=== PATIENT | male | born 2000 | race Caucasian/White ===

== ENCOUNTER 2022-04-10 16:03 | Outpatient (CLI) | payer OTHER, SELFPAY ==
[2022-04-10 17:08] LABS: Red Blood Count Semen 0-4 /hpf; Sperm Immotility 10 % (50-60); Sperm Non-Progressive Motility 40 % (5-10); Sperm Progressive Motility 60 % (31-34); Viscosity Semen Droplets; Volume Semen 2.5 mL (2-5); White Blood Count Semen 0-4 /hpf
[2022-04-10 17:17] LABS: Sperm Count 72.5 mill/mL (40-160)
== END 2022-04-10 16:04 | disposition home or self-care (01) ==
PROVIDERS: Visit Provider Obstetrics & Gynecology
DX: N46.9 Male infertility, unspecified (principal)
CPT/HCPCS: 80503; 89320

== ENCOUNTER 2024-12-31 09:39 | Outpatient (CLI) | payer OTHER, SELFPAY ==
[2024-12-31 10:15] LABS: Viscosity Semen High Viscosity
[2024-12-31 10:16] LABS: Pathology Referral Yes; Red Blood Count Semen 0-4 /hpf; Sperm Immotility 5 % (50-60); Sperm Non-Progressive Motility 10 % (5-10); Sperm Progressive Motility 85 % (31-34); White Blood Count Semen 0-4 /hpf
== END 2024-12-31 09:40 | disposition home or self-care (01) ==
PROVIDERS: Visit Provider Obstetrics & Gynecology
DX: Z31.41 Encounter for fertility testing (principal)
CPT/HCPCS: 80503; 89320